=== PATIENT | male | born 1970 | race Caucasian/White ===

== ENCOUNTER 2021-05-06 16:47 | Emergency (ER) | payer OTHER ==
[~2021-05-06] VITALS: Ht 167.6 cm; Wt 96.8 kg
[2021-05-06] MEDS ORDERED: LISINOPRIL10 MG PO (16:57)
[2021-05-06] MEDS ORDERED: METFORMIN HCL500 MG PO (16:57)
[2021-05-06] MEDS ORDERED: TRAMADOL HCL 50 MG TAB PO NR (17:30)
[2021-05-06] MEDS ORDERED: IBUPROFEN600 MG PO (18:21)
[2021-05-06] MEDS ORDERED: TYLENOL # 31 EA PO (18:23)
== END 2021-05-06 18:38 | disposition home or self-care (01) ==
LOC: FSED 17:05
DX: M25.561 Pain in right knee (principal); S83.91XA Sprain of unspecified site of right knee, initial encounter; S80.01XA Contusion of right knee, initial encounter; W22.09XA Striking against other stationary object, initial encounter; Y93.44 Activity, trampolining; M17.11 Unilateral primary osteoarthritis, right knee; E11.9 Type 2 diabetes mellitus without complications
CPT/HCPCS: 99284

== ENCOUNTER 2022-09-21 22:25 | Emergency (ER) | payer OTHER ==
[~2022-09-21] VITALS: Ht 167.6 cm; Wt 99.3 kg
[~2022-09-21 22:25] MED LIST: IBUPROFEN600 MG PO; LISINOPRIL10 MG PO; METFORMIN HCL500 MG PO; TYLENOL # 31 EA PO
[2022-09-21] MEDS ORDERED: FLONASE ALLERG9.9 ML INH (22:54)
[2022-09-21] MEDS ORDERED: BROMFED DM COU118 ML PO (22:54)
[2022-09-21 23:00] VITALS: BP 131/69
== END 2022-09-21 23:00 | disposition home or self-care (01) ==
LOC: FSED 22:53
DX: R50.9 Fever, unspecified (principal); J10.1 Influenza due to other identified influenza virus with other respiratory manifestations; I10 Essential (primary) hypertension; E11.9 Type 2 diabetes mellitus without complications
CPT/HCPCS: 87400; 99282